=== PATIENT | male | born 1950 | race Caucasian/White ===

== ENCOUNTER → 2016-11-03 | Outpatient (CLI) | payer MEDICARE, OTHER ==
--- NOTE | ~2016-11-03 | CR184 ---
[facility] A Service of [facility] [place] RADIOLOGY TEXT RESULTS PATIENT: MANNY JOHNSON V LOCATION: [facility] : 54 UNIT #: [id number] AGE: [address]: Karen Gleason MD SEX: M ORDER DR: [id number] [facility] [address] [place], [place] [address] [id number] O MR#: [id number] Acc #: [id number] NAME: MANNY JOHNSON : 1950 SEX: M STUDY DATE/TIME: 11/03/2016 9:52 UNIT: [facility] ROOM: STUDY DESCRIPTION: CR Lumbar Spine Min 4 Views Attending Physician: Karen Gleason M.D. Referring Physician: Karen Gleason M.D. Ordering Physician: Karen Gleason M.D. Primary Care Physician: Karen Gleason M.D. MEDICAL IMAGING REPORT This report is preliminary unless electronic signature is present EXAM Lumbar spine series, 11/03/2016. HISTORY Pain. Chronic back pain, nerve damage, old compression fracture L1. Numbness occasionally in legs. History of cervical fusion, spinal stenosis, 1 year duration. Fall 1993. FINDINGS AP, lateral and voluntary flexion/extension lateral views of the lumbar spine are presented. 5 lumbar-type vertebral segments. In frontal projection, there is mild dextroscoliosis at the thoracolumbar junction centered at the L1 vertebral body level. There is a chronic marked compression deformity of the L1 vertebral body with loss of height up to about 66% anteriorly relative to normal height L2. This is felt to be chronic in time course on basis of patient's history, and on basis of bridging anterior osteophytes between T12 and L1. There is some smoothly contoured retropulsion posterior-superior L1 vertebral body cortex. No other compression deformities are seen. Moderate narrowing T12-L1 intervertebral disc space. Mild disc space narrowing L1-L2, L2-L3, L3-L4, and L5-S1. Mild to moderate facet degenerative changes in the lumbar spine more pronounced L3-L4, L4-L5, L5-S1. With voluntary flexion and extension, there is no abnormal change in alignment. There are atherosclerotic arterial calcifications. Visualized bowel gas pattern is normal. Visualized lower thoracic spine shows degenerative change but no acute-appearing abnormality. Visualized bony pelvis is intact. Visualized pulmonary parenchyma clear. If it would assist in patient management, lower thoracic and lumbar spine, spinal canal and neural foraminal contents could best be further evaluated with MRI if patient is candidate. If the patient is not a candidate for MRI, consider [facility] A Service of [facility] RADIOLOGY TEXT RESULTS PATIENT: MANNY JOHNSON V LOCATION: [facility] #: [id number] : 54 UNIT #: [id number] AGE: [address]: Karen Gleason MD SEX: M ORDER DR: Dictated by... Surya Murguia M.D. THIS IS AN ELECTRONICALLY VERIFIED REPORT Surya Murguia M.D. at 11/04/2016 10:27 PM Ravin TD: 11/04/2016 01:45 JOB #: [id number] MEDICAL IMAGING REPORT Page 1 of 1 COPY
== END | disposition home or self-care (01) ==
LOC: CRAD 09:20
DX: M54.5 Low back pain (principal)
CPT/HCPCS: 72110